=== PATIENT | female | born 1990 | race Caucasian/White ===

== ENCOUNTER 2017-05-03 12:36 | Emergency (ER) | payer MEDICAID ==
[~2017-05-03] VITALS: Ht 165.1 cm; Wt 79.5 kg
[2017-05-03 13:02] VITALS: BP 132/88
--- NOTE | 2017-05-03 15:41 | NUR ---
PATIENT PRESENTS TO ED WITH LEFT BUTTOCK PAIN SMALL AREA INFERIOR SIDE SWELLING REDNESS TENDER . PT STATES . DENIES N/V/D; SKIN IS PINK/WARM/DRY; AAOX4 WITH EVEN AND STEADY GAIT; LUNGS CLEAR BL; HR EVEN AND REGULAR; PT DENIES ANY FEVER, CP, SOB, OR COUGH AT THIS TIME; PATIENT STATES PAIN OF 7/10 AT THIS TIME; VSS; PATIENT POSITIONED FOR COMFORT; HOB ELEVATED; BEDRAILS UP X2; BED DOWN. ER MD MADE AWARE OF PT STATUS.
[2017-05-03] MEDS ORDERED: LIDOCAINE/EPI 1% 1:100000 20 ML VIAL INJ ONE (17:00)
[2017-05-03] MEDS: HYDROmorphone PFS 2 MG/ML SYR IM ONE (17:26)
[2017-05-03] MEDS: CLINDAMYCIN 600 MG/4 ML VIAL IM ONE (17:26)
--- NOTE | 2017-05-03 17:26 | NUR ---
NAUSEA AND VOMITING NOTED AFTER MEDICATION GIVEN, DR. CLEMENS MADE AWARE, ZOFRAN GIVEN, VSS, WILL CONTINUE TO MONITOR.
[2017-05-03] MEDS ORDERED: NEOMYCIN/POLYMYXIN/BACITRACIN 0.9 GM/1 PKT TP ONE (17:47)
--- NOTE | 2017-05-03 17:50 | NUR ---
I&D DONE AT BEDSIDE BY DR. CLEMENS AND KAYLIE FOSTRE AT BEDSIDE.
--- NOTE | 2017-05-03 17:51 | NUR ---
10ML OF LIDOCANE AND NEOSPONE USED DURING THE PROCEDURE.
[2017-05-03] MEDS: ONDANSETRON 4 MG ODT PO ONE (17:53)
--- NOTE | 2017-05-03 18:00 | NUR ---
PT IS STILL NAUSEA AND DIZZINESS. DR. CLEMENS MADE AWARE, WILL WAITING FOR ORDER.
--- NOTE | 2017-05-03 19:00 | NUR ---
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
[2017-05-03] MEDS: NALOXONE 0.4 MG/ML VIAL IVP ONE (19:30)
--- NOTE | 2017-05-03 19:47 | NUR ---
SELINA PUENTE HERE AT BEDSIDE TO DRIVE PT HOME.
--- NOTE | 2017-05-03 19:51 | NUR ---
Shaq linda in EDM - 05/03/17 at 1953 by TOMMY IV removed, catheter intact and site benign. Applied folded 4x4 gauze and tape to stop bleeding.
--- NOTE | 2017-05-03 19:52 | NUR ---
Note maddi in EDM - 05/03/17 at 1953 by TOMMY Patient discharged with v/s stable. Written and verbal after care instructions given and explained. Patient alert, oriented and verbalized understanding of instructions. Ambulatory with steady gait. All questions addressed prior to discharge. ID band removed. Patient advised to follow up with PMD. Rx of MOTRIN 800MG AND CLEOCIN 300MG given. Patient educated on indication of medication including possible reaction and side effects. Opportunity to ask questions provided and answered.
[2017-05-03] MEDS ORDERED: PROMETHAZINE 25 MG/ML VIAL IM ONE (20:20)
[2017-05-03] MEDS: PROMETHAZINE 25 MG/ML VIAL IVP ONE (20:26)
--- NOTE | 2017-05-03 21:16 | NUR ---
Patient discharged with v/s stable. Written and verbal after care instructions given and explained. Patient alert, oriented and verbalized understanding of instructions. Ambulatory with steady gait. All questions addressed prior to discharge. ID band removed. Patient advised to follow up with PMD. Rx of MOTRIN 800MG AND CLEOCIN 300MG given. Patient educated on indication of medication including possible reaction and side effects. Opportunity to ask questions provided and answered.
--- NOTE | 2017-05-03 21:16 | NUR ---
IV removed, catheter intact and site benign. Applied folded 4x4 gauze and tape to stop bleeding.
[2017-05-03 21:17] VITALS: BP 122/72
== END 2017-05-03 21:26 | disposition home or self-care (01) ==
LOC: MED 12:36
DX: K61.0 Anal abscess (principal)
CPT/HCPCS: 46050; 87070; 87075; 87205; 96372; 96374; 96375; 99284; J1170; J2001; J2310; J2550; J3490; S0119

== ENCOUNTER 2021-06-21 20:45 | Emergency (ER) | payer BC, MEDICAID, OTHER ==
[~2021-06-21] VITALS: Ht 165.1 cm; Wt 88.1 kg
[2021-06-21 21:15] VITALS: BP 116/83
--- NOTE | 2021-06-21 21:23 | NUR ---
pt sent to lobby.
--- NOTE | 2021-06-21 22:01 | NUR ---
PT TAKEN TO BED 3
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
--- NOTE | 2021-06-21 22:35 | NUR ---
Dr. Amezquita examining patient.
[2021-06-21] MEDS ORDERED: ACETAMINOPHEN EXTRA STRENGTH 500 MG TAB PO ONE (23:00)
[2021-06-21] MEDS ORDERED: HYDR25SU91 RC (23:51)
[2021-06-21] MEDS ORDERED: MIRABULK PO (23:51)
[2021-06-21] MEDS ORDERED: LIDO28CR2 TP (23:51)
--- NOTE | 2021-06-21 23:59 | NUR ---
Patient discharged with v/s stable. Written and verbal after care instructions given and explained. Patient alert, oriented and verbalized understanding of instructions. Ambulatory with steady gait. All questions addressed prior to discharge. ID band removed. Patient advised to follow up with PMD. Rx of ANUSOL-HC, PREPERATION H RAPID-LIDO CREAM & MIRALAX given. Patient educated on indication of medication including possible reaction and side effects. Opportunity to ask questions provided and answered.
== END 2021-06-21 23:59 | disposition home or self-care (01) ==
LOC: MED 20:45
DX: K64.4 Residual hemorrhoidal skin tags (principal); Z98.890 Other specified postprocedural states; Z79.899 Other long term (current) drug therapy
CPT/HCPCS: 99283